=== PATIENT | female | born 1995 | race Caucasian/White ===

== ENCOUNTER 2018-08-03 22:33 | Emergency (ER) | payer OTHER, SELFPAY ==
[2018-08-03 22:36] VITALS: BP 145/102; PULSE 120; RESP 16; TEMP 36.9; O2SAT 98
--- NOTE | 2018-08-03 22:49 | DI.RAD.S_ITS ---
PROCEDURE: XR SHOULDER LT MIN 2V INDICATIONS: pain, popping posterior shoulder TECHNIQUE: 3 views of the shoulder were acquired. COMPARISON: None. FINDINGS: Bones: No fractures or dislocations. No suspicious bony lesions. Visualized ribs appear intact. Soft tissues: No suspicious soft tissue calcifications. IMPRESSION: No visualized acute fracture or dislocation. However, if clinical concern and/or pain persist, short interval imaging followup in 7-10 days is recommended, as occult injury cannot be definitively excluded. The above findings are concordant with preliminary report. Dictated by: Antonella Guerrero M.D. on 08/04/2018 at 8:44 Approved by: Antonella Guerrero M.D. on 08/04/2018 at 8:58
--- NOTE | 2018-08-03 22:52 | ED.UPPEXIN ---
HPI - Extremity Injury (Upper) General Chief Complaint: Extremity Injury, Upper Stated Complaint: Shoulder Pain Time Seen by Provider: 08/03/18 22:35 Source: patient and family Mode of arrival: ambulatory Limitations: no limitations History of Present Illness HPI narrative: 23-year-old smoking female without significant medical history presents with pain and popping in her left shoulder. Her trigger was in using her left arm to her steering wheel and she felt the pop and grinding pain. It then pops back in her pain goes to 0. She initially suffered an injury a couple years ago and received physical therapy but no advanced imaging. She denies any new, specific or direct injury or trauma. he denies any numbness, tingling or weakness MD complaint: injury to: left Onset (ago): day(s) Handedness: right Place: home Severity: moderate Relieving factors: none Exacerbating factors: movement of extremity Associated symptoms: denies other symptoms Related Data Allergies Allergy/AdvReac Type Severity Reaction Status Date / Time Penicillins Allergy Verified 08/03/18 22:40 Review of Systems Constitutional Denies chills, Denies fever(s), Denies lethargy and Denies weakness Eyes Denies change in vision, Denies eye discharge, Denies irritation and Denies loss of vision ENT Ears, Nose, Mouth, and Throat: Denies change in voice, Denies neck pain and Denies sore throat Cardiovascular Denies chest pain, Denies irregular heart rhythm, Denies lightheadedness, Denies palpitations, Denies dyspnea, Denies dyspnea on exertion and Denies orthopnea Respiratory Denies cough, Denies dyspnea, Denies dyspnea on exertion and Denies wheezing Gastrointestinal Gastrointestinal: Denies abdominal pain, Denies change in bowel habits, Denies diarrhea, Denies nausea and Denies vomiting Genitourinary Denies hematuria, Denies flank pain, Denies urinary incontinence and Denies urinary urgency Musculoskeletal Reports limited range of motion and Denies neck pain Integumentary/Breasts Denies pruritus, Denies erythema, Denies rash and Denies wounds Neurologic Denies confusion, Denies loss of vision and Denies weakness Psychiatric Denies anxiety, Denies confusion, Denies depression, Denies homicidal ideation and Denies suicidal ideation Endocrine Denies palpitations Hematologic/Lymphatic Denies easy bruising Allergic/Immunologic Denies wheezing PFSH Social History Smoking Status: Current every day smoker Social History Smoking Status: Current every day smoker Exam Narrative Exam Narrative: GEN: AOx3 and in mild distress EYES: Pupils are equal, round, and reactive to light and accommodation. Extraoccular muscles are intact bilaterally. There is no subconjunctival hemorrhage or exudate. CHEST: Lungs are clear to auscultation bilaterally and free of wheezes, rales, or rhonchi. Heart rate is regular rhythm, there are no murmurs, clicks, rubs, or gallops. There is no chest wall tenderness. ABD: Abdomen is soft and nontender. There is no guarding or rebound. Bowel sounds are normal in all 4 quadrants. There is no mass or organomegaly. EXT: Full painless ROM of all extremities with no loss of sensation or strength. With pronation and palpation of the posterior shoulder you can feel a pop, which causes pain. It then pops back and pain subsides SKIN: Warm, pink, and dry. No erythema or rash Initial Vital Signs Initial Vital Signs: Vital Signs Temperature 98.4 F 08/03/18 22:36 Pulse Rate 120 H 08/03/18 22:36 Respiratory Rate 16 08/03/18 22:36 Blood Pressure 145/102 H 08/03/18 22:36 Pulse Oximetry 98 08/03/18 22:36 Procedures Orthopedic Splinting/Casting Injury #1: Side: left Upper Extremity Injury Location: shoulder Upper Extremity Immobilizer: sling/shoulder immobilizer Post splinting neuro exam: intact Post splinting vascular exam: intact Placed by: Nursing Course Orders Ordered: ED Orders 08/03/18 22:49 XR shoulder LT min 2V Stat Vital Signs - 8 hr 08/03/18 22:36 Temperature 98.4 F Pulse Rate 120 H Respiratory Rate 16 Blood Pressure 145/102 H Pulse Oximetry 98 [facility] - Extremity Injury (Upper) Imaging Data shoulder xray: Attestation: I personally reviewed and interpreted this imaging study as follows: My impression: [facility] Narrative Medical decision making narrative: patient can repeatedly sublux her shoulder, which causes her pain. SHe has no new trauma, placed in splint and given return precautions Discharge Plan Departure Patient Disposition: Home Clinical Impression: Acute shoulder pain Qualifiers: Laterality: left Qualified Code(s): M25.512 - Pain in left shoulder Instructions: Shoulder Sprain Activity Restrictions/Additional Instructions: *You have been diagnosed with [ acute on chronic shoulder injury, possible rotator cuff or labral tear ] *What to do: *Take medications as directed; motrin or tylenol for pain *Follow up with your primary care provider in 2-3 days, call for an appointment. Let them know you were seen in the Emergency Department and that we ask that you be seen in follow up. Additionally you've been given contact info for our orthopedist as well. *Return to ER if you should have any new, worsening or concerning symptoms Referrals: Kemal Licea MD [Physician] -
[2018-08-03 23:38] VITALS: PULSE 99; RESP 16; O2SAT 99
== END 2018-08-03 23:40 | disposition home or self-care (01) ==
PROVIDERS: Emergency Provider Emergency Medicine
DX: M25.512 Pain in left shoulder (principal)
CPT/HCPCS: 73030; 99282; 99283

== ENCOUNTER → 2024-06-14 13:25 | Outpatient (CLI) | payer OTHER, SELFPAY ==
--- NOTE | 2024-06-14 13:27 | DI.US.S_ITS ---
PROCEDURE: US PELVIC COMPLETE INDICATIONS: IRREGULAR MENSES TECHNIQUE: Real-time scanning was performed of the pelvic organs, with image documentation. Additional endovaginal scanning was necessary due to incomplete visualization of the adnexal and endometrial structures by transabdominal scanning. COMPARISON: None. FINDINGS: This Uterus: Uterus is retroverted and normal in size at 6.1 x 3.4 x 4.3 cm. The myometrium is homogeneous. The endometrium measures 6 mm combined thickness. Incidental note is made of nabothian cysts. Ovaries: The right ovary measures 3 x 3.4 x 2.4 cm, with a calculated ovarian volume of 12.6 cc. The left ovary measures 2.2 x 1.4 x 1.5 cm, with a calculated ovarian volume of 2.3 cc. The ovaries have a normal sonographic appearance. Less than 12 follicles can be seen in each ovary. No adnexal masses are seen. Other: No pathologic free abdominal or pelvic fluid. This study is limited by body habitus. IMPRESSION: Less than 12 follicles can be seen involving each ovary. These imaging findings are not supportive of a clinical diagnosis of polycystic ovarian syndrome. No significant pelvic ultrasound abnormality is seen. We strive to produce accurate, complete, and clear reports of imaging services. To assist us in improving patient care, this report was composed using standard report templates and voice recognition software. Therefore, it may contain abnormal punctuation, insertions and/or omissions. Occasional wrong-word or sound-alike substitutions may occur. Though we review the report and make efforts to correct it, we do recommend that the report be read carefully in proper context to recognize any text inaccuracies. Dictated by: Frank Montilla M.D. on 06/14/2024 at 13:22 Approved by: Frank Montilla M.D. on 06/14/2024 at 13:23
== END ==
PROVIDERS: PCP Registered Nurse; Referring Provider Registered Nurse; Visit Provider Registered Nurse
DX: N92.6 Irregular menstruation, unspecified (principal); N88.8 Other specified noninflammatory disorders of cervix uteri
CPT/HCPCS: 76830; 76856